=== PATIENT | female | born 2000 | race Caucasian/White ===

== ENCOUNTER 2019-02-24 16:58 | Emergency (ER) | payer OTHER ==
[~2019-02-24] VITALS: Ht 160 cm; Wt 78.5 kg
[2019-02-24 17:06] VITALS: Ht 160 cm; Wt 78.5 kg
[2019-02-24 17:51] LABS: UA SPECIFIC GRAVITY <=1.005 (1.005-1.035); microscopic required? YES; urine erythrocyte TRACE (NEGATIVE)
[2019-02-24 17:52] LABS: PLATELET COUNT 210 x10^3mcL (130-400); RED CELL DISTRIBUTION WIDTH 13.6 % (11.5-14.5)
[2019-02-24 18:00] LABS: AMPHETAMINE QUAL UR POSITIVE (See below)
[2019-02-24 18:03] LABS: CALCIUM 8.5 mg/dL (8.5-10.1); CARBON DIOXIDE 18.1 mmol/L (21-32); CHLORIDE SERUM 103 mmol/L (98-107); GFR1 > 60 mL/min; GLUCOSE SERUM 98 mg/dL (74-106); POTASSIUM SERUM 3.2 mmol/L (3.5-5.1); SODIUM SERUM 135 mmol/L (136-145)
[2019-02-24 18:07] LABS: BAND NEUTROPHIL 4 % (0-10); MONOCYTE 8 % (0-7); SEGMENTED NEUTROPHILS 82 % (37-75)
[2019-02-24 18:08] LABS: ALKALINE PHOSPHATASE 250 U/L (46-116); ALT/SGPT 10 U/L (14-59); AST/SGOT 11 U/L (15-37); BILIRUBIN TOTAL 0.62 mg/dL (0.20-1.00)
[2019-02-24 18:10] LABS: PLATELET MORPHOLOGY PLATELETS NORMAL; TOTAL PROTEIN, SERUM 6.1 g/dL (6.4-8.2); rbc morphology (normal/abnorm) ABNORMAL (NORMAL)
[2019-02-24 19:39] VITALS: BP 117/70
== END 2019-02-24 19:39 | disposition home or self-care (01) ==
LOC: ED 16:58
PROVIDERS: Emergency Medicine
DX: O21.0 Mild hyperemesis gravidarum (principal); Z3A.32 32 weeks gestation of pregnancy; Z98.890 Other specified postprocedural states
CPT/HCPCS: J0696; J7030; J7060